=== PATIENT | female | born 1940 | race Native Hawaiian/Other Pacific Islander ===

== ENCOUNTER 2017-09-05 14:49 | Outpatient (CLI) | payer OTHER, BC ==
[~2017-09-05 14:49] MED LIST: ATEN25TA21 PO; CIPRO500 MG PO; PROBIOTI2 OR
== END 2017-09-05 19:23 | disposition home or self-care (01) ==
LOC: RESP 14:49
DX: I10 Essential (primary) hypertension (principal); R00.2 Palpitations
CPT/HCPCS: 93225

== ENCOUNTER 2017-09-06 08:37 | Outpatient (CLI) | payer OTHER, BC ==
[2017-09-06 09:00] LABS: PLATELET COUNT 268 K/uL (152-353)
[2017-09-06 09:21] LABS: POTASSIUM 3.8 mmol/L (3.6-5.2)
== END 2017-09-06 19:22 | disposition home or self-care (01) ==
LOC: LABW 08:37
PROVIDERS: Internal Medicine
DX: I10 Essential (primary) hypertension (principal)
CPT/HCPCS: 36415; 80053; 80061; 84439; 84443; 85027

== ENCOUNTER 2017-09-19 12:25 | Outpatient (CLI) | payer OTHER, BC | END 2017-09-19 13:25 | disposition home or self-care (01) | LOC: CT 12:25 | DX: R51 Headache (principal) ==

== ENCOUNTER 2020-05-30 16:34 | Outpatient (CLI) | payer OTHER ==
[2020-05-30 17:33] LABS: PLATELET COUNT 257 K/uL (152-353)
[2020-05-30 17:49] LABS: POTASSIUM 3.6 mmol/L (3.6-5.2)
== END 2020-05-30 20:22 | disposition home or self-care (01) ==
LOC: LAB 16:34
PROVIDERS: Internal Medicine
DX: I10 Essential (primary) hypertension (principal)
CPT/HCPCS: 80053; 80061; 82306; 84439; 84443; 85027